=== PATIENT | male | born 1950 | race Caucasian/White ===

== ENCOUNTER 2017-04-17 23:02 | Emergency (ER) | payer SELFPAY, OTHER, MEDICARE | END 2017-04-18 04:18 | disposition left against medical advice (07) | LOC: E/R 23:02 | DX: Z53.21 Procedure and treatment not carried out due to patient leaving prior to being seen by health care provider (principal) ==

== ENCOUNTER 2017-06-06 05:51 | Emergency (ER) | payer MEDICARE, OTHER ==
[2017-06-06] MEDS ORDERED: SOD CHLORIDE 0.9% 1,000 ML IV (06:41)
[2017-06-06] MEDS ORDERED: METOCLOPRAMIDE 10 MG INJ IV (06:41)
[2017-06-06] MEDS ORDERED: FAMOTIDINE 20 MG INJ IV (06:41)
[2017-06-06] MEDS ORDERED: OCTREOTIDE 50 MCG in SOD CHLORIDE 0.9% 25 ML IVPB (06:41)
[2017-06-06] MEDS ORDERED: OCTREOTIDE 500 MCG in SOD CHLORIDE 0.9% 49 ML IV (06:41)
[2017-06-06 07:42] LABS: ADD MAN DIFF? NO
[2017-06-06 07:56] LABS: BASOPHIL # 0.1 10^3/ul (0.0-0.1); BASOPHILS % 0.8 % (0.0-2.0); EOSINOPHILS # 0.1 10^3/ul (0.0-0.5); EOSINOPHILS % 1.1 % (0.0-7.0); HEMOGLOBIN 13.8 g/dl (14.0-18.0); LYMPHOCYTES % 15.7 % (15.0-51.0); MEAN CORPUSCULAR HEMOGLOBIN 30.7 pg (29.0-33.0); MEAN CORPUSCULAR HGB CONC 32.9 g/dl (32.0-37.0); MEAN CORPUSCULAR VOLUME 93.3 fl (82.0-101.0); MEAN PLATELET VOLUME 10.8 fl (7.4-10.4); MONOCYTE # 0.7 10^3/ul (0.3-0.9); MONOCYTES % 11.3 % (0.0-11.0); NEUTROPHIL # 4.4 10^3/ul (1.6-7.5); NEUTROPHILS % 70.9 % (39.0-77.0); PLATELET COUNT 218 10^3/UL (140-415); RED CELL DISTRIBUTION WIDTH 14.9 % (11.5-14.5)
[2017-06-06 07:56] LABS: WHITE BLOOD COUNT 6.2 10^3/ul (4.8-10.8)
[2017-06-06 08:16] LABS: INR 1.04; PARTIAL THROMBOPLASTIN TIME 30.7 Sec (25.0-35.0); PROTIME 13.7 Sec (11.9-14.9); PT RATIO 1.1
[2017-06-06] MEDS ORDERED: IODIXANOL LOCM 100 ML BTL (08:18)
[2017-06-06] MEDS ORDERED: SOD CHLORIDE 0.9% 100 ML (08:18)
[2017-06-06 08:23] LABS: ALANINE AMINOTRANSFERASE 100 IU/L (13-69); ALBUMIN 4.1 g/dl (3.3-4.9); ALBUMIN/GLOBULIN RATIO 1.17; ALKALINE PHOSPHATASE 125 IU/L (42-121); AMYLASE 72 U/L (11-123); ANION GAP 13 (8-16); ASPARTATE AMINO TRANSFERASE 77 IU/L (15-46); BILIRUBIN,INDIRECT 0.2 mg/dl (0-1.1); BILIRUBIN,TOTAL 0.2 mg/dl (0.2-1.3); BLOOD UREA NITROGEN 23 mg/dl (7-20); CALCIUM 9.1 mg/dl (8.4-10.2); CARBON DIOXIDE 30 mmol/L (21-31); CHLORIDE 110 mmol/L (97-110); CREATININE 1.22 mg/dl (0.61-1.24); GLUCOSE 99 mg/dl (70-220); LIPASE 80 U/L (23-300); POTASSIUM 4.9 mmol/L (3.5-5.1); SODIUM 148 mmol/L (135-144); TOTAL PROTEIN 7.6 g/dl (6.1-8.1)
[2017-06-06 08:35] LABS: TROPONIN-I 0.031 ng/ml (0.00-0.12)
== END 2017-06-06 08:06 | disposition left against medical advice (07) ==
LOC: E/R 05:51
DX: K92.0 Hematemesis (principal); R07.9 Chest pain, unspecified; Z87.891 Personal history of nicotine dependence
CPT/HCPCS: 71045; 80053; 82150; 83690; 84484; 85025; 85610; 85730; 86850; 86900; 86901; 93005; 99285-25

== ENCOUNTER 2017-06-15 10:25 | Emergency (ER) | payer SELFPAY, OTHER, MEDICARE | END 2017-06-15 14:21 | disposition left against medical advice (07) | LOC: FTE 10:25 | DX: Z53.21 Procedure and treatment not carried out due to patient leaving prior to being seen by health care provider (principal) ==

== ENCOUNTER 2017-08-22 21:35 | Emergency (ER) | payer SELFPAY | END 2017-08-22 23:11 | disposition left against medical advice (07) | LOC: E/R 21:35 | DX: Z53.21 Procedure and treatment not carried out due to patient leaving prior to being seen by health care provider (principal) ==

== ENCOUNTER 2017-12-07 03:03 | Emergency (ER) | payer MEDICARE, OTHER | END 2017-12-07 05:14 | disposition home or self-care (01) | LOC: E/R 03:03 | DX: S09.90XA Unspecified injury of head, initial encounter (principal); F10.920 Alcohol use, unspecified with intoxication, uncomplicated; F17.210 Nicotine dependence, cigarettes, uncomplicated; R55 Syncope and collapse; Y09 Assault by unspecified means; Y92.9 Unspecified place or not applicable | CPT/HCPCS: 70450; 99284-25 ==

== ENCOUNTER 2018-05-19 11:08 | Emergency (ER) | payer MEDICARE, OTHER ==
[2018-05-19] MEDS: SOD CHLORIDE 0.9% 1,000 ML IV (12:09)
[2018-05-19] MEDS: DICYCLOMINE 10 MG CAP PO (12:09)
[2018-05-19 12:18] LABS: ADD MAN DIFF? NO
[2018-05-19 12:23] LABS: WHITE BLOOD COUNT 7.6 10^3/ul (4.8-10.8)
[2018-05-19 12:23] LABS: BASOPHIL # 0.1 10^3/ul (0.0-0.1); BASOPHILS % 0.8 % (0.0-2.0); EOSINOPHILS # 0.1 10^3/ul (0.0-0.5); EOSINOPHILS % 1.4 % (0.0-7.0); HEMATOCRIT 51.1 % (42.0-52.0); HEMOGLOBIN 16.4 g/dl (14.0-18.0); LYMPHOCYTES # 1.1 10^3/ul (0.8-2.9); LYMPHOCYTES % 14.5 % (15.0-51.0); MEAN CORPUSCULAR HEMOGLOBIN 29.9 pg (29.0-33.0); MEAN CORPUSCULAR HGB CONC 32.1 g/dl (32.0-37.0); MEAN CORPUSCULAR VOLUME 93.2 fl (82.0-101.0); MEAN PLATELET VOLUME 10.5 fl (7.4-10.4); MONOCYTE # 0.8 10^3/ul (0.3-0.9); MONOCYTES % 10.5 % (0.0-11.0); NEUTROPHIL # 5.5 10^3/ul (1.6-7.5); NEUTROPHILS % 72.5 % (39.0-77.0); PLATELET COUNT 275 10^3/UL (140-415); RED BLOOD COUNT 5.48 10^6/ul (4.70-6.10); RED CELL DISTRIBUTION WIDTH 14.3 % (11.5-14.5)
[2018-05-19 12:43] LABS: ALANINE AMINOTRANSFERASE 28 IU/L (13-69); ALBUMIN 4.3 g/dl (3.3-4.9); ALBUMIN/GLOBULIN RATIO 0.93; ALKALINE PHOSPHATASE 119 IU/L (42-121); ANION GAP 13 (5-13); ASPARTATE AMINO TRANSFERASE 43 IU/L (15-46); BILIRUBIN,INDIRECT 0.4 mg/dl (0-1.1); BILIRUBIN,TOTAL 0.4 mg/dl (0.2-1.3); BLOOD UREA NITROGEN 30 mg/dl (7-20); CALCIUM 9.3 mg/dl (8.4-10.2); CARBON DIOXIDE 27 mmol/L (21-31); CHLORIDE 104 mmol/L (97-110); CREATININE 1.42 mg/dl (0.61-1.24); Estimated GFR 49 mL/min (>60); GLUCOSE 105 mg/dl (70-220); LIPASE 38 U/L (23-300); POTASSIUM 5.3 mmol/L (3.5-5.1); SODIUM 144 mmol/L (135-144); TOTAL PROTEIN 8.9 g/dl (6.1-8.1)
== END 2018-05-19 13:04 | disposition home or self-care (01) ==
LOC: E/R 11:08
DX: R19.7 Diarrhea, unspecified (principal); N28.9 Disorder of kidney and ureter, unspecified
CPT/HCPCS: 36415; 74176; 80053; 83690; 85025; 99285-25